=== PATIENT | female | born 1985 | race African-American/Black ===

== ENCOUNTER 2017-09-06 19:15 | Emergency (ER) | payer SELFPAY ==
--- NOTE | 2017-09-06 22:38 | RAD ---
TWO VIEWS OF THE RIGHT CLAVICLE: 09/06/17 INDICATION: Right clavicle pain that began earlier today. COMPARISON: None. FINDINGS: No acute fracture or subluxation is evident. The visualized right lung is clear. AC joint and sternoc lavicular articulations appear within normal limits. IMPRESSION: No acute osseous abnormality. POS: [facility]
== END 2017-09-06 23:00 | disposition home or self-care (01) ==
LOC: ERS 19:15
DX: M25.511 Pain in right shoulder (principal); Z87.891 Personal history of nicotine dependence

== ENCOUNTER 2019-08-11 09:18 | Emergency (ER) | payer SELFPAY | END 2019-08-11 10:37 | disposition home or self-care (01) | LOC: ERS 09:18 | DX: J30.2 Other seasonal allergic rhinitis (principal); J02.9 Acute pharyngitis, unspecified | CPT/HCPCS: 87081; 87430; 99281 ==

== ENCOUNTER 2021-07-04 13:34 | Emergency (ER) | payer SELFPAY ==
[2021-07-04] MEDS ORDERED: traMADol HCl 50 MG TAB ONE ×2 (14:29→14:35)
[2021-07-04] MEDS ORDERED: Lidocaine Viscous Sol 2% 15 ml UD Cup ONE (14:29)
[2021-07-04] MEDS ORDERED: Ketorolac Tromethamine 30 MG/ML VIAL ONE (14:29)
== END 2021-07-04 14:54 | disposition home or self-care (01) ==
LOC: ERS 13:34
DX: K05.20 Aggressive periodontitis, unspecified (principal); K02.9 Dental caries, unspecified; F17.290 Nicotine dependence, other tobacco product, uncomplicated
CPT/HCPCS: 96372; 99282; J1885

== ENCOUNTER 2022-06-16 12:09 | Emergency (ER) | payer SELFPAY | END 2022-06-16 15:25 | disposition home or self-care (01) | LOC: ERS 12:09 | DX: J02.9 Acute pharyngitis, unspecified (principal); F17.210 Nicotine dependence, cigarettes, uncomplicated | CPT/HCPCS: 87081; 87430; 99283 ==